=== PATIENT | male | born 1945 | race Caucasian/White ===

== ENCOUNTER 2019-06-15 14:06 | Inpatient (IN) ==
[2019-06-15] MEDS ORDERED: 0.9 % Sodium Chloride 1,000 ML ONE (14:21)
[2019-06-15] MEDS ORDERED: Ipratropium/Albuterol Neb 3 ML ONE (14:23)
[2019-06-15] MEDS ORDERED: Ipratropium/Albuterol Neb 3 ML IH ONE (14:24)
[2019-06-15] MEDS ORDERED: methylPREDNISolone 125 MG/2 ML VIAL IVP ONE (14:24)
[2019-06-15] MEDS ORDERED: 0.9 % Sodium Chloride 1,000 ML IVC ONE (14:24)
--- NOTE | 2019-06-15 14:28 | Emergency Department Note ---
Disposition Clinical Impression: Supratherapeutic INR, Hemoptysis, Atrial fibrillation with RVR, Pulmonary nodules, Elevated troponin Pneumonia Qualifiers: Pneumonia type: due to unspecified organism Laterality: bilateral Lung location: unspecified part of lung Qualified Code(s): J18.9 - Pneumonia, unspecified organism Sepsis Qualifiers: Sepsis type: sepsis due to unspecified organism Qualified Code(s): A41.9 - Sepsis, unspecified organism Disposition: Admitted As Inpatient Condition: Undetermined Referrals: NONE,PCP [Primary Care Provider] - Forms: ED Satisfaction Letter Time of Disposition: 17:45 General Adult HPI - General Chief complaint: ED Shortness of Breath/Dyspnea Stated complaint: [place] Time Seen by Provider: 06/15/19 14:24 Source: patient Mode of arrival: private vehicle Limitations: no limitations Nursing Notes Reviewed: Yes Vital Signs Reviewed: Yes - History of Present Illness HPI Narrative: Patient is a 73-year-old male with a past medical history including atrial fibrillation on Coumadin, hypertension, presenting to the emergency department with chief complaint of shortness of breath. The patient states for the past 5 days, he complains of cough and shortness of breath. He was diagnosed as an ou tpatient with community-acquired pneumonia at the urgent care and was sent home on Z-Eduar and prednisone. He states despite this, he has a decreased appetite, some nausea. He has not been taking his medications as prescribed. He states he has worsening cough and shortness of breath with exertion. He also complains of some hemoptysis in the past 2-3 days. He states at times, he will cough up bright red blood and sometimes it is dark. Today he states the shortness of breath was at its worse. He denies any chest pain, lower extremity swelling, abdominal pain, vomiting, diarrhea. Upon arrival, his oxygen saturation was 80% on room air. Pain Scale: 0 - Related Data Allergies Allergy/AdvReac Type Severity Reaction Status Date / Time acetaminophen [From Vicodin] Allergy Itching Verified 06/15/19 15:16 hydrocodone [From Vicodin] Allergy Itching Verified 06/15/19 15:16 oxycodone [From Percocet] Allergy Itching Verified 06/15/19 15:17 All systems ED: reviewed and negative except as stated. Review of Systems: As Per HPI Constitutional: Denies: fever, chills Cardiovascular: Denies: chest pain, palpitations Respiratory: Reports: cough, dyspnea, hemoptysis Gastrointestinal: Denies: abdominal pain, nausea, vomiting, diarrhea Genitourinary: Denies: dysuria Neurological: Denies: headache, weakness Past Medical History - Past Medical History Attestation: Yes The following information was validated with the patient. Source: patient Medical history: Reports: atrial fibrillation Psychiatric history: Reports: no psych history - Social History Smoking Status: Never smoker Smokeless Tobacco Status: No Alcohol use: Reports: none Drug use: Reports: none Physical Exam - General Limitations: no limitations General appearance: alert, in distress (respiratory distress) - Head Head exam: atraumatic, normocephalic - Eye Eye exam: Present: normal appearance, EOMI - ENT ENT exam: mucous membranes moist, other (Dried blood around the mouth, not actively having hemoptysis. Coughing clear sputum at this time.) - Neck Neck exam: Present: normal inspection, other (no JVD). Absent: tenderness - Chest Chest inspection: Present: normal inspection, symmetric chest wall rise - Respiratory Respiratory exam: Present: other (Slightly diminished breath sounds bilaterally with scattered expiratory wheezing. Oxygen per mask. Tachypneic, No Accessory muscle use.) - Cardiovascular Cardiovascular exam: Present: tachycardia, irregular rhythm, other (Bilateral radial and dorsalis pedis pulses palpable) - Abdominal Exam Abdominal exam: Present: soft, Non-Tender. Absent: distention - Extremities Exam Extremities exam: Present: normal capillary refill, other (Mild bilateral lower extremity edema to mid calf) - Neurological Exam Neurological exam: Present: alert, oriented X3 - Psychiatric Psychiatric exam: Present: normal affect, normal mood - Skin Skin exam: Present: warm. Absent: diaphoresis, pallor Course Vital Signs Temperature 97.9 F 06/15/19 14:09 Pulse Rate 120 06/15/19 14:09 Respiratory Rate 22 06/15/19 14:09 Blood Pressure 103/59 06/15/19 14:09 O2 Sat by Pulse Oximetry 80 06/15/19 14:09 Temperature 98.1 F 06/15/19 18:33 Pulse Rate 112 06/15/19 18:33 Respiratory Rate 20 06/15/19 18:33 Blood Pressure 111/78 06/15/19 18:18 O2 Sat by Pulse Oximetry 98 06/15/19 18:18 Oxygen Delivery Oxygen Delivery Room Air Medical Decision Making - MDM Narrative Medical decision making narrative: Patient was in significant amount of respiratory distress upon arrival. Oxygen saturation initially was 80% on room air. He does not wear oxygen at home. Patient was placed on high flow oxygen with much improvement in his oxygen satu ration. He also states he feels much better. He has scattered wheezing otherwise lungs were clear. He has mild swelling bilateral lower extremities. He has history of atrial fibrillation otherwise no history of coronary artery disease or heart failure. Suspect that his significant shortness of breath is secondary to pneumonia and possible COPD exacerbation. We will give him triple DuoNeb treatments as well as Solu-Medrol. Heart rate was atrial fibrillation with RVR with rate in the 160s. Patient states he has missed his diltiazem dose for the past couple of days. A 15 mg diltiazem bolus followed by titration diltiazem drip. CBC, PT/INR/PTT, d-dimer, BMP, troponin, BNP, chest x-ray, a CT will be obtained. Patient has no active hemoptysis at this time. 16:00 Patient has supratherapeutic INR and prolonged PTT and PT. He was given vitamin K and FFP as he is actively bleeding with the hemoptysis that he is having. Patient's HR 140's and is being titrated on the diltiazem drip. Troponin <0.03. Elevated BNP. Chest x-ray does show right lower lobe pneumonia. His d-dimer is elevated so we will obtain a CTA chest to rule out a pulmonary embolism as a cause of his significant shortness of breath. We will give the patient Levaquin, Rocephin, Azithromycin for pneumonia. Patient reassessed and states he is feeling better. He remained stable on high flow oxygen. No other co mplaints. 17:30 CTA negative for PE. HR improved to 110-120's. Discussed with hospitalist, Dr. Lara, and Dr. Benjamin who accept admission. Dr. Benjamin recommends giving K Centra for the elevated INR. This has been ordered. - Medical Records Medical records reviewed: Yes I reviewed the patient's medical records. - Lab Data Lab results reviewed: Yes I reviewed the patient's lab results. Result diagrams: 06/15/19 14:24 06/15/19 14:24 Lab Results 06/15/19 06/15/19 06/15/19 Range/Units 14:24 14:24 14:24 WBC 27.8 H (4.3-11.1) K/mcL RBC 4.69 (4.19-5.50) M/mcL Hgb 14.9 (12.9-16.9) g/dL Hct 43.6 (37.5-50.1) % MCV 93.0 (83.0-100.0) fL MCH 31.8 (28.0-33.3) pg MCHC 34.2 (31.6-35.5) g/dL RDW 13.8 (11.5-14.5) % Plt Count 302 (140-400) K/mcL MPV 10.0 (9.4-12.4) fL Immature Gran % Test Not Performed Seg Neutrophils % 82.0 % Band Neutrophils % 2.0 (0-4) % Lymphocytes % 8.0 % Monocytes % 6.0 % Eosinophils % Test Not Performed Basophils % Test Not Performed Myelocytes % 2.0 H (0) % Neutrophils # 23.4 H (1.6-8.9) K/mcL Lymphocytes # 2.2 (0.6-4.6) K/mcL Monocytes # 1.7 H (0.0-1.3) K/mcL Eosinophils # Test Not Performed Basophils # Test Not Performed Nucleated RBCs/100 WBC 0.1 H (0) /100 WBC Reactive Lymphocytes Present A (Not Present) Toxic Granulation Present A (Not Present) Large Platelets Present A (Not Present) Polychromasia 1+ A (Not Present) PT > 320.0 H* (9.4-12.1) Seconds INR > 29.6 H* APTT 130.5 H* (26.0-36.0) Seconds D-Dimer 1273 H (0-500) ng/mLFEU Heparin Anti-Xa, Unfract 0.00 L (0.30-0.70) IU/mL Sodium 131 L (136-145) mEq/L Potassium 3.7 (3.5-5.1) mEq/L Chloride 96 L (98-107) mEq/L Carbon Dioxide 19 L (23-29) mEq/L BUN 39 H (8-23) mg/dL Creatinine 1.22 (0.70-1.30) mg/dL Est GFR ( Amer) > 60 (> 60) Est GFR (Non-Af Amer) 58 L (> 60) BUN/Creatinine Ratio 32 H (6-26) Glucose 123 H (70-105) mg/dL Calculated Osmolality 283 (280-300) Lactic Acid (0.5-2.2) mmol/L Calcium 9.3 (8.6-10.3) mg/dL Troponin I 0.07 H* (< 0.04) ng/mL B-Natriuretic Peptide (Less than 100) pg/mL Specimen Rejected Blood Type Antibody Screen 06/15/19 06/15/19 06/15/19 Range/Units 14:24 14:24 15:28 WBC (4.3-11.1) K/mcL RBC (4.19-5.50) M/mcL Hgb (12.9-16.9) g/dL Hct (37.5-50.1) % MCV (83.0-100.0) fL MCH (28.0-33.3) pg MCHC (31.6-35.5) g/dL RDW (11.5-14.5) % Plt Count (140-400) K/mcL MPV (9.4-12.4) fL Immature Gran % Seg Neutrophils % % Band Neutrophils % (0-4) % Lymphocytes % % Monocytes % % Eosinophils % Basophils % Myelocytes % (0) % Neutrophils # (1.6-8.9) K/mcL Lymphocytes # (0.6-4.6) K/mcL Monocytes # (0.0-1.3) K/mcL Eosinophils # Basophils # Nucleated RBCs/100 WBC (0) /100 WBC Reactive Lymphocytes (Not Present) Toxic Granulation (Not Present) Large Platelets (Not Present) Polychromasia (Not Present) PT (9.4-12.1) Seconds INR APTT (26.0-36.0) Seconds D-Dimer (0-500) ng/mLFEU Heparin Anti-Xa, Unfract (0.30-0.70) IU/mL Sodium (136-145) mEq/L Potassium (3.5-5.1) mEq/L Chloride (98-107) mEq/L Carbon Dioxide (23-29) mEq/L BUN (8-23) mg/dL Creatinine (0.70-1.30) mg/dL Est GFR ( Amer) (> 60) Est GFR (Non-Af Amer) (> 60) BUN/Creatinine Ratio (6-26) Glucose (70-105) mg/dL Calculated Osmolality (280-300) Lactic Acid 1.8 (0.5-2.2) mmol/L Calcium (8.6-10.3) mg/dL Troponin I (< 0.04) ng/mL B-Natriuretic Peptide 415 H (Less than 100) pg/mL Specimen Rejected Hemolyzed Blood Type Antibody Screen 06/15/19 06/15/19 Range/Units 15:28 17:04 WBC (4.3-11.1) K/mcL RBC (4.19-5.50) M/mcL Hgb (12.9-16.9) g/dL Hct (37.5-50.1) % MCV (83.0-100.0) fL MCH (28.0-33.3) pg MCHC (31.6-35.5) g/dL RDW (11.5-14.5) % Plt Count (140-400) K/mcL MPV (9.4-12.4) fL Immature Gran % Seg Neutrophils % % Band Neutrophils % (0-4) % Lymphocytes % % Monocytes % % Eosinophils % Basophils % Myelocytes % (0) % Neutrophils # (1.6-8.9) K/mcL Lymphocytes # (0.6-4.6) K/mcL Monocytes # (0.0-1.3) K/mcL Eosinophils # Basophils # Nucleated RBCs/100 WBC (0) /100 WBC Reactive Lymphocytes (Not Present) Toxic Granulation (Not Present) Large Platelets (Not Present) Polychromasia (Not Present) PT (9.4-12.1) Seconds INR APTT (26.0-36.0) Seconds D-Dimer (0-500) ng/mLFEU Heparin Anti-Xa, Unfract (0.30-0.70) IU/mL Sodium (136-145) mEq/L Potassium (3.5-5.1) mEq/L Chloride (98-107) mEq/L Carbon Dioxide (23-29) mEq/L BUN (8-23) mg/dL Creatinine (0.70-1.30) mg/dL Est GFR ( Amer) (> 60) Est GFR (Non-Af Amer) (> 60) BUN/Creatinine Ratio (6-26) Glucose (70-105) mg/dL Calculated Osmolality (280-300) Lactic Acid 1.4 (0.5-2.2) mmol/L Calcium (8.6-10.3) mg/dL Troponin I (< 0.04) ng/mL B-Natriuretic Peptide (Less than 100) pg/mL Specimen Rejected Blood Type B POSITIVE Antibody Screen NEGATIVE - Radiology Data Radiology results reviewed: Yes I reviewed the patient's radiology results. Chest X-Ray 06/15/19 14:24 IMPRESSION: Airspace and interstitial opacities diffusely to the right lung with slight sparing of the right lung base concerning for pneumonia. Follow-up to resolution recommended. D/ 06/15/2019 14:52:43 Kamar Sharp MD / rajeev Interpreting Provider: Kamar Sharp MD Chest CTA 06/15/19 15:56 IMPRESSION: No PE identified. Diffuse interstitial and alveolar infiltrates within the right lung. Mediastinal and right hilar adenopathy. Pulmonary emphysema with left upper lobe and right lower lobe pulmonary micronodules. Correlate for pneumonia and strongly advised follow-up to complete imaging resolution to rule out the possibility of an underlying malignancy. RECOMMENDATIONS: Fleischner Society guidelines for follow-up and management of incidentally detected pulmonary nodules: Multiple Solid Nodules: Nodule size less than 6 mm In a low-risk patient, no routine follow-up. In a high-risk patient, optional CT at 12 months. Nodule size equals 6-8 mm In a low-risk patient, CT at 3-6 months, then consider CT at 18-24 months. In a high-risk patient, CT at 3-6 months, then CT at 18-24 months. Nodule size greater than 8 mm In a low-risk patient, CT at 3-6 months, then consider CT at 18-24 months. In a high-risk patient, CT at 3-6 months, then CT at 18-24 months. - Low risk patients include individuals with minimal or absent history of smoking and other known risk factors. - High risk patients include individuals with a history or smoking or known risk factors. Radiology 2017 http://pubs.rsna.org/doi/full/10.1148/radiol.[email or web address] D/ / Speedy Daigle MD / Speedy Daigle MD Interpreting Provider: Speedy Daigle MD - EKG Data EKG #1 EKG attestation: Yes I reviewed and interpreted this EKG. EKG results narrative: EKG obtained at 1420 shows atrial fibrillation with rapid ventricular rate with rate 172, QRS duration 91, QTC 450, no ST elevation or depression, no old EKG to compare to. Critical Care Time Critical Care Time: Yes Total Critical Care Time: 35 Attestation: Rectal care time 35 minutes managing patient's hypoxia, hemoptysis, and elevated INR. Attestation Statement - Attestation Attestation: Patient was seen with resident physician. I reviewed the history, physical, assessment and plan, and agree with the findings. I also personally evaluated this patient and had [id number] time with this patient. 73-year-old male comes into the emergency Department chief complaint of h emoptysis. Patient started coughing blood a couple days ago. Progressively got worse. No shortness of breath. Denies chest pain. No nausea vomiting. No diarrhea. No dark stools. No blood in the urine. Patient and are on clear as to how much blood he coughed up.. They said sometimes brighter sometimes darker. They did note it is not vomiting. Patient was recently diagnosed with pneumonia and started on antibiotic therapy. Patient does take anticoagulation currently he is on Coumadin.. Review systems as above remainder negative. Physical exam vital signs demonstrate an elevated heart rate and what appears to be A. fib.. ENT is unremarkable. Heart rapid ventricular rate, no murmurs. Lungs diffuse mild end expiratory wheezing. Abdomen soft nontender. Extremities unremarkable. Neurologically intact. Skin no rashes. Psych normal. She be noted that patient had some blood around the mouth that appeared dried. He did not have hemoptysis while in the emergency department. ED course. Patient's INR was markedly elevated. He will require FFP and vitamin K. We will also need to control his heart rate. One sets done we will try and do some breathing treatments to help with his breathing and hypoxia. Patient will clearly require hospitalization for additional evaluation and management. The variety of other issues were also discovered on examination and workup. Including continuation of pneumonia. For full list of patient diagnosis please see the diagnosis list. Hemodynamically he was improved while he was here. He did not have any active hemoptysis while in the emergency department seems to have resolved prior to his arrival. Critical care time for this case was 35 minutes. We spoke to the hospitalist service agreed except patient for admission. Patient will be taken to the ICU. ED procedures.I reviewed the patient's EKG as well as the resident physician interpretation and I agree with the findings.
[2019-06-15 14:34] LABS: Nucleated Red Blood Cells 0.1 /100 WBC (0)
[2019-06-15 14:35] LABS: Hematocrit 43.6 % (37.5-50.1); Hemoglobin 14.9 g/dL (12.9-16.9); Mean Corpuscular HGB Conc 34.2 g/dL (31.6-35.5); Mean Corpuscular Hemoglobin 31.8 pg (28.0-33.3); Platelet Count 302 K/mcL (140-400); Red Blood Count 4.69 M/mcL (4.19-5.50); Red Cell Distribution Width 13.8 % (11.5-14.5); White Blood Count 27.8 K/mcL (4.3-11.1)
[2019-06-15 15:00] LABS: BUN/Creatinine Ratio 32 (6-26); Blood Urea Nitrogen 39 mg/dL (8-23); Calcium 9.3 mg/dL (8.6-10.3); Carbon Dioxide 19 mEq/L (23-29); Chloride 96 mEq/L (98-107); Glucose 123 mg/dL (70-105); Osmolality,Calculated 283 (280-300); Potassium 3.7 mEq/L (3.5-5.1); Sodium 131 mEq/L (136-145); Troponin I 0.07 ng/mL (< 0.04); eGFR For African Americans > 60 (> 60); eGFR For Non-African Americans 58 (> 60)
[2019-06-15 15:02] LABS: Large Platelets Present (Not Present); Lymphocytes # 2.2 K/mcL (0.6-4.6); Monocytes # 1.7 K/mcL (0.0-1.3); Neutrophils # 23.4 K/mcL (1.6-8.9); Reactive Lymphocytes Present (Not Present); Toxic Granulation Present (Not Present)
[2019-06-15] MEDS ORDERED: *HR* Phytonadione 5 MG TABLET PO ONE (15:02)
[2019-06-15 15:03] LABS: Polychromasia 1+ (Not Present)
[2019-06-15 15:04] LABS: Activated Partial Thrombo Time 130.5 Seconds (26.0-36.0); D-Dimer 1273 ng/mLFEU (0-500)
[2019-06-15 15:06] LABS: Prothrombin Time > 320.0 Seconds (9.4-12.1)
[2019-06-15 15:07] LABS: INR > 29.6
[2019-06-15] MEDS ORDERED: Azithromycin 500 MG in D5% in Water 250 ML IVPB ONE (15:32)
[2019-06-15] MEDS ORDERED: cefTRIAXone 1,000 MG in Water for inj. (sterile) 10 ML IVP ONE (15:32)
[2019-06-15] MEDS ORDERED: Isovue-370 500 ML BOTTLE IVP ONE (15:56)
[2019-06-15] MEDS ORDERED: [UNRECOGNIZED DRUG - OTHER] IVPB ONE (17:44)
[2019-06-15] MEDS ORDERED: WATER FOR INJ IVPB ONE (17:44)
[2019-06-15] MEDS ORDERED: HUM PROTHROMBIN CPLX IVPB ONE (17:44)
--- NOTE | 2019-06-15 18:26 | Internal Med History&Physical ---
Date of Encounter: 06/15/19 Time of Encounter: 18:21 Internal Medicine - H&P: HPI Chief complaint: cough, shortness of breath. Admitted From: Home Plans for Post Hospital Care: Home History of present illness: Mr. Navarrete is a 73 year old male with past medical history of A. fib on Coumadin, hypertension, gout, peripheral vascular disease came in computer of cough and shortness of breath. Patient was evaluated about 4 days ago at urgent care where he was prescribed prednisone, amoxicillin and azithromycin. She is on difficulty breathing continued to worse. He had subjective fevers and chills. Over the past 2-3 days she started noticing blood in his him why his coughing. Dark red in color. About 2-4 times a day. Denies any clots. Denies any chest pain. Had associated palpitation. Denies any lightheadedness or dizziness or syncopal episode. Given continued difficulty breathing he came to ER. He was admitted in ER her lab showed white count of 27,000, INR of more than 29.6, d-dimer of 1273, BNP of [address] was obtained which showed pulmonary emphysema, diffuse interstitial and alveolar infiltrates within right lung, mediastinal and right hilar adenopathy and pulmonary nodules. Patient was given Solu-Medrol, vitamin K, 1 L IV fluids, ceftriaxone and azithromycin and breathing treatments. He was also started on diltiazem drip for A. fib with RVR. Admission was requested for further management. Past Med Surg Social Fam HX - Past Medical History Medical history: atrial fibrillation Psychiatric history: no psych history - Past Surgical History Additional surgical history: hand surgery - Social History Smoking Status: Former smoker (60 pack year) Smokeless Tobacco Status: No Alcohol use: none Drug use: none Internal Medicine - H&P: Meds Allergy/AdvReac Type Severity Reaction Status Date / Time acetaminophen [From Vicodin] Allergy Itching Verified 06/15/19 15:16 hydrocodone [From Vicodin] Allergy Itching Verified 06/15/19 15:16 oxycodone [From Percocet] Allergy Itching Verified 06/15/19 15:17 All Systems PM: A 10-system review of systems was performed and is negative for pertinent findings except as documented above in the HPI. - Constitutional Vitals: Temp Pulse Resp BP Pulse Ox 97.9 F 120 22 103/59 80 07/28/19 14:09 06/15/19 14:09 06/15/19 14:09 06/15/19 14:09 06/15/19 14:09 Exam: Constitutional: Vitals as noted. Conversant. No Apparent Distress. Well groomed. No obvious deformities. Eyes : Sclera white, conjunctiva clear, no lid lag, PEARLA. ENT : Grossly normal hearing. Oropharyngeal exam unremarkable. Moist mucus membranes. No JVD, no cervical lymphadenopathy. no thyromegaly or mass. Respiratory : Clear to auscultation bilaterally. No accessory muscle use, rales, rhonchi or wheezes Cardiovascular : RRR, +S1, +S2. no murmur, gallop, rubs. No chest wall tenderness GI/Abdominal : Soft, Non-tender, Non-distended, normal bowel sounds, soft, no peritoneal signs. no orgenomegaly or mass appreciated. no hernia. Musculoskeletal: no deformity noted. no edema or cyanosis. warm extremities, pulses palpable and symmetrical in UE/LE. no calf tenderness. Neurological: AO X3, CN II-XII grossly intact, grossly normal motor and sensory exam. Skin: No skin rash, lesions or ulcers noted. Pych: Good insight and judgement. Intact memory. AOx3. Internal Med - H&P Results - Labs CBC & Chem 7: 06/15/19 14:24 06/15/19 14:24 Labs: Short CBC 06/15/19 Range/Units 14:24 WBC 27.8 H (4.3-11.1) K/mcL Hgb 14.9 (12.9-16.9) g/dL Hct 43.6 (37.5-50.1) % Plt Count 302 (140-400) K/mcL Neutrophils # 23.4 H (1.6-8.9) K/mcL BMP 06/15/19 14:24 Sodium 131 L Potassium 3.7 Chloride 96 L Carbon Dioxide 19 L BUN 39 H Creatinine 1.22 Glucose 123 H Calcium 9.3 Cardiac Enzymes 06/15/19 Range/Units 14:24 Troponin I 0.07 H* (< 0.04) ng/mL - EKG Data -: EKG Interpreted by Myself (afib with rvr. ) - Impressions ITS Impressions Chest X-Ray 06/15/19 14:24 IMPRESSION: Airspace and interstitial opacities diffusely to the right lung with slight sparing of the right lung base concerning for pneumonia. Follow-up to resolution recommended. D/ /15/2019 14:52:43 Kamar Sharp MD / rajeev Interpreting Provider: Kamar Sharp MD Chest CTA 06/15/19 15:56 IMPRESSION: No PE identified. Diffuse interstitial and alveolar infiltrates within the right lung. Mediastinal and right hilar adenopathy. Pulmonary emphysema with left upper lobe and right lower lobe pulmonary micronodules. Correlate for pneumonia and strongly advised follow-up to complete imaging resolution to rule out the possibility of an underlying malignancy. RECOMMENDATIONS: Fleischner Society guidelines for follow-up and management of incidentally detected pulmonary nodules: Multiple Solid Nodules: Nodule size less than 6 mm In a low-risk patient, no routine follow-up. In a high-risk patient, optional CT at 12 months. Nodule size equals 6-8 mm In a low-risk patient, CT at 3-6 months, then consider CT at 18-24 months. In a high-risk patient, CT at 3-6 months, then CT at 18-24 months. Nodule size greater than 8 mm In a low-risk patient, CT at 3-6 months, then consider CT at 18-24 months. In a high-risk patient, CT at 3-6 months, then CT at 18-24 months. - Low risk patients include individuals with minimal or absent history of smoking and other known risk factors. - High risk patients include individuals with a history or smoking or known risk factors. Radiology 2017 http://pubs.rsna.org/doi/full/10.1148/radiol.[email or web address] D/ / Speedy Daigle MD / Speedy Daigle MD Interpreting Provider: Speedy Daigle MD - Assessment and Plan (1) Acute respiratory failure with hypoxia Current Visit: Yes Status: Acute Assessment and plan: Likely secondary to pneumonia and underlying COPD as evidenced on CT. We will keep patient on Levaquin. Keep on Solu-Medrol 60 mg q12h and given nebs Currently on high flow oxygen. Discussed possible need for intubation if wo rsens. Patient agrees and is full code. Keep patient nothing by mouth for now (2) Supratherapeutic INR Current Visit: Yes Status: Acute Assessment and plan: INR significantly elevated. Likely due to drug interaction with antibiotics and Coumadin Patient received dose of vitamin K in ER. Discussed with the ER physician. We will give patient to [facility]. Discussed dosing with pharmacy. Patient does have associated hemoptysis. If develop severe hemoptysis may need intubation. Discussed with patient. We will keep patient in ICU. Pulmonology consulted. Case discussed. (3) Hemoptysis Current Visit: Yes Status: Acute Assessment and plan: Likely secondary to supratherapeutic INR Management as above. (4) Pneumonia Current Visit: Yes Status: Acute Assessment and plan: Patient has evidence of right upper lobe consolidation. We will keep patient on Levaquin for now. We will hold azithromycin for now. Obtain respiratory infectious panel and urinary antigens. Keep patient on Solu-Medrol bronchodilators and supplemental oxygen. Qualifiers: Pneumonia type: due to unspecified organism Laterality: right Lung location: unspecified part of lung Qualified Code(s): J18.9 - Pneumonia, unspecified organism (5) Elevated troponin I level Current Visit: Yes Status: Acute Assessment and plan: Likely demand ischemia with COPD exacerbation and pneumonia. Denies chest paint. EKG without ischemic changes. We will trend troponin and obtain echocardiogram. (6) Atrial fibrillation with RVR Current Visit: Yes Status: Acute Assessment and plan: Continue patient on diltiazem drip. Hold home Coumadin given supratherapeutic INR. - Time Spent With Patient Total time spent is greater than 50% in coordination of care (as documented) at patient's floor/unit and/or counseling patient:
[2019-06-15] MEDS ORDERED: Ipratropium/Albuterol Neb 3 ML IH PRN (18:40)
[2019-06-15] MEDS ORDERED: 0.9 % Sodium Chloride 1,000 ML IVC SCH (18:45)
[2019-06-15] MEDS ORDERED: levoFLOXacin 750 MG/150 ML 750 MG/150 ML BAG IVPB SCH (20:00)
[2019-06-15] MEDS: Ipratropium/Albuterol Neb 3 ML IH SCH (21:20)
[2019-06-15 22:22] LABS: Adenovirus Not Detected (Not Detect); Bordetella Pertussis Not Detected (Not Detect); Chlamydophila pneumoniae Not Detected (Not Detect); Coronavirus 229E Not Detected (Not Detect); Coronavirus HKU1 Not Detected (Not Detect); Coronavirus NL63 Not Detected (Not Detect); Coronavirus OC43 Not Detected (Not Detect); Human Metapneumovirus Not Detected (Not Detect); Human Rhinovirus/Enterovirus Not Detected (Not Detect); Influenza A Subtype 2009 H1 Not Detected (Not Detect); Influenza A Untypeable Not Detected (Not Detect); Influenza B Not Detected (Not Detect); Mycoplasma pneumoniae Not Detected (Not Detect); Parainfluenza Virus 1 Not Detected (Not Detect); Parainfluenza Virus 2 Not Detected (Not Detect); Parainfluenza Virus 3 Not Detected (Not Detect); Parainfluenza Virus 4 Not Detected (Not Detect); Respiratory Syncytial Virus Not Detected (Not Detect)
[2019-06-15] MEDS ORDERED: *HR* Dextrose 50 % in Water (Syg) 50 ML SYRINGE IVP PRN (22:30)
[2019-06-15] MEDS ORDERED: Dextrose Gel 15 GM/37.5 ML TUBE PO PRN ×2 (22:30)
[2019-06-15] MEDS ORDERED: D5% in Water 1,000 ML IVC PRN (22:30)
[2019-06-15] MEDS: Insulin LISPRO 300 UNITS/3 ML VIAL SQ SCH (23:40)
[2019-06-16] MEDS: Ipratropium/Albuterol Neb 3 ML IH SCH ×4 (03:48→22:44)
[2019-06-16 05:11] LABS: Basophils # 0.1 K/mcL (0.0-0.2); Basophils % 0.6 %; Hematocrit 34.4 % (37.5-50.1); Immature Granulocytes % 5.3 % (0-4); Lymphocytes # 1.1 K/mcL (0.6-4.6); Lymphocytes % 9.4 %; Mean Corpuscular Hemoglobin 31.5 pg (28.0-33.3); Mean Corpuscular Volume 92.7 fL (83.0-100.0); Mean Platelet Volume 9.8 fL (9.4-12.4); Monocytes # 0.3 K/mcL (0.0-1.3); Monocytes % 2.5 %; Platelet Count 232 K/mcL (140-400); Red Blood Count 3.71 M/mcL (4.19-5.50); Red Cell Distribution Width 13.9 % (11.5-14.5); Segmented Neutrophils % 82.2 %
[2019-06-16 05:16] LABS: Hemoglobin 11.7 g/dL (12.9-16.9); Neutrophils # 9.5 K/mcL (1.6-8.9); White Blood Count 11.6 K/mcL (4.3-11.1)
[2019-06-16 05:25] LABS: INR 2.3; Prothrombin Time 25.6 Seconds (9.4-12.1)
[2019-06-16 05:30] LABS: BUN/Creatinine Ratio 37 (6-26); Blood Urea Nitrogen 34 mg/dL (8-23); Calcium 8.4 mg/dL (8.6-10.3); Carbon Dioxide 20 mEq/L (23-29); Chloride 102 mEq/L (98-107); Glucose 171 mg/dL (70-105); Magnesium 2.1 mg/dL (1.6-2.6); Osmolality,Calculated 290 (280-300); Phosphorous 2.5 mg/dL (2.7-4.5); Potassium 3.5 mEq/L (3.5-5.1); Sodium 134 mEq/L (136-145); eGFR For African Americans > 60 (> 60); eGFR For Non-African Americans > 60 (> 60)
[2019-06-16] MEDS: Insulin LISPRO 300 UNITS/3 ML VIAL SQ SCH ×3 (05:36→18:17)
[2019-06-16 05:43] LABS: Platelet Estimate Normal (Normal)
[2019-06-16] MEDS ORDERED: methylPREDNISolone 125 MG/2 ML VIAL IVP SCH (06:00)
--- NOTE | 2019-06-16 07:48 | Internal Med Progress Note ---
Hospitalist Progress Note - Encounter Date of Encounter: 06/16/19 Time of Encounter: 07:48 - Subjective Interval History: Patient seen and examined this morning check. No acute overnight events. Denies any blood in sputum however he felt he might have swallowed a couple of times. Denies any chest pain. Breathing significantly improved. Denies any ab dominal pain back pain nausea vomiting or diarrhea. - Exam Vitals: Temp Pulse Resp BP Pulse Ox 98.8 F 90 12 117/68 94 06/16/19 04:00 06/16/19 06:00 06/16/19 06:00 06/16/19 06:00 06/16/19 06:00 Exam: Constitutional: In no distress ENT: Grossly normal hearing. Oropharyngeal exam with dried blood in mouth Respiratory : minimal rhonchi on Rt with pleural rub. improved air entry. Cardiovascular : tachycardic, +S1, +S2. no murmur, gallop, rubs. No chest wall tenderness GI/Abdominal : Soft, Non-tender, Non-distended, normal bowel sounds, Musculoskeletal: no deformity noted, no edema or cyanosis, pulses palpable and symmetrical in UE/LE. no calf tenderness. Neurological: AO X3, CN II-XII grossly intact, grossly normal motor and sensory exam. Skin: No skin rash, lesions or ulcers noted. Pych: Good insight and judgement. Intact memory. AOx3. - Assessment and Plan (1) Acute respiratory failure with hypoxia Current Visit: Yes Status: Acute (2) Supratherapeutic INR Current Visit: Yes Status: Acute (3) Hemoptysis Current Visit: Yes Status: Acute (4) Pneumonia Current Visit: Yes Status: Acute (5) Elevated troponin I level Current Visit: Yes Status: Acute (6) Atrial fibrillation with RVR Current Visit: Yes Status: Acute - Summary of Assessment and Plan Summary of Assessment and Plan: Assessment Acute Acute respiratory failure with hypoxia supratherpeutic INR Hemoptysis Pneumonia-rt lung , unclear organism Lung nodule elevated troponin COPD exacerbation Chronic afib copd PAD former smoker Plan - clinically improved. Transfer to any tele - continue with empiric levaquin for pneumonia. RIP and urine ag negative. - c/w solumedrol and bronchodilator for COPD exacerbation. c/w supplemental oxygen - Was given Vit K and Kcentra for supratherapeutic INR with hemoptysis. INR now normalized. Hold coumadin for now. Pulmonology consulted for hemoptysis - Will switch rate control medication if bronchoscopy not planned today. confirm home medications. - elevated troponin likely from likely demand ischemia with COPD exacerbation and pneumonia. EKG without ischemic changes. f/u echocardiogram. Internal Medicine: Result - Labs CBC & Chem 7: 06/16/19 04:58 06/16/19 04:58 Labs: Short CBC 06/15/19 06/16/19 Range/Units 14:24 04:58 WBC 27.8 H 11.6 H D (4.3-11.1) K/mcL Hgb 14.9 11.7 L D (12.9-16.9) g/dL Hct 43.6 34.4 L (37.5-50.1) % Plt Count 302 232 (140-400) K/mcL Neutrophils # 23.4 H 9.5 H (1.6-8.9) K/mcL BMP 06/15/19 06/16/19 14:24 04:58 Sodium 131 L 134 L Potassium 3.7 3.5 Chloride 96 L 102 Carbon Dioxide 19 L 20 L BUN 39 H 34 H Creatinine 1.22 0.92 Glucose 123 H 171 H Calcium 9.3 8.4 L Cardiac Enzymes 06/15/19 06/15/19 06/15/19 Range/Units 14:24 19:07 23:18 Troponin I 0.07 H* 0.09 H* 0.04 H* (< 0.04) ng/mL 06/16/19 Range/Units 04:58 Troponin I < 0.03 (< 0.04) ng/mL - ABG Interpretation ABG results: PT/INR, D-dimer PT 25.6 Seconds (9.4-12.1) H D 06/16/19 04:58 D-Dimer 1273 ng/mLFEU (0-500) H 06/15/19 14:24 - Impressions Impressions Chest X-Ray 06/15/19 14:24 IMPRESSION: Airspace and interstitial opacities diffusely to the right lung with slight sparing of the right lung base concerning for pneumonia. Follow-up to resolution recommended. D/ / 06/15/2019 14:52:43 Kamar Sharp MD / rajeev Interpreting Provider: Kamar Sharp MD Chest CTA 06/15/19 15:56 IMPRESSION: No PE identified. Diffuse interstitial and alveolar infiltrates within the right lung. Mediastinal and right hilar adenopathy. Pulmonary emphysema with left upper lobe and right lower lobe pulmonary micronodules. Correlate for pneumonia and strongly advised follow-up to complete imaging resolution to rule out the possibility of an underlying malignancy. RECOMMENDATIONS: Fleischner Society guidelines for follow-up and management of incidentally detected pulmonary nodules: Multiple Solid Nodules: Nodule size less than 6 mm In a low-risk patient, no routine follow-up. In a high-risk patient, optional CT at 12 months. Nodule size equals 6-8 mm In a low-risk patient, CT at 3-6 months, then consider CT at 18-24 months. In a high-risk patient, CT at 3-6 months, then CT at 18-24 months. Nodule size greater than 8 mm In a low-risk patient, CT at 3-6 months, then consider CT at 18-24 months. In a high-risk patient, CT at 3-6 months, then CT at 18-24 months. - Low risk patients include individuals with minimal or absent history of smoking and other known risk factors. - High risk patients include individuals with a history or smoking or known risk factors. Radiology 2017 http://pubs.rsna.org/doi/full/10.1148/radiol.6729955065 D/ / Speedy Daigle MD / Speedy Daigle MD Interpreting Provider: Speedy Daigle MD - VTE Reasons for not Prescribing Prophylaxis: Not indicated-Anticoagulated or INR therapeutic Consult Discharge Plan - Plan Referrals: NONE,PCP [Primary Care Provider] - ____ (4) Pneumonia Qualifiers: Pneumonia type: due to unspecified organism Laterality: right Lung location: unspecified part of lung Qualified Code(s): J18.9 - Pneumonia, unspecified organism
[2019-06-16] MEDS ORDERED: Perflutren Lipid Microsphere 1.3 ML in 0.9 % Sodium Chloride 8.7 ML IVP ONE (07:49)
[2019-06-16] MEDS ORDERED: Perflutren Lipid Microsphere 2 ML VIAL ONE (07:52)
--- NOTE | 2019-06-16 08:05 | Pulmonology Consult Note ---
<Faustino Herrera W - Last Filed: 06/16/19 12:59> Date of Encounter: 06/16/19 Medications and Allergies Allergy/AdvReac Type Severity Reaction Status Date / Time hydrocodone [From Vicodin] Allergy Itching Verified 06/15/19 15:16 oxycodone [From Percocet] Allergy Itching Verified 06/15/19 15:17 All Systems: The remainder of the systems were reviewed and are negative Physical Examination Vital Signs: Vital Signs, Last 4 Hours Temp Pulse Resp BP Pulse Ox 06/16/19 11:39 97.6 F 89 20 118/72 91 06/16/19 10:00 16 94 Results - Laboratory Findings CBC and BMP: 06/16/19 04:58 06/16/19 04:58 PT/INR, D-dimer PT 25.6 Seconds (9.4-12.1) H D 06/16/19 04:58 D-Dimer 1273 ng/mLFEU (0-500) H 06/15/19 14:24 Abnormal lab findings: Abnormal lab results WBC 11.6 K/mcL (4.3-11.1) H D 06/16/19 04:58 RBC 3.71 M/mcL (4.19-5.50) L 06/16/19 04:58 Hgb 11.7 g/dL (12.9-16.9) L D 06/16/19 04:58 Hct 34.4 % (37.5-50.1) L 06/16/19 04:58 Immature Gran % 5.3 % (0-4) H 06/16/19 04:58 Myelocytes % 2.0 % (0) H 06/15/19 14:24 Neutrophils # 9.5 K/mcL (1.6-8.9) H 06/16/19 04:58 Monocytes # 1.7 K/mcL (0.0-1.3) H 06/15/19 14:24 Nucleated RBCs/100 WBC 0.1 /100 WBC (0) H 06/15/19 14:24 Reactive Lymphocytes Present (Not Present) A 06/15/19 14:24 Toxic Granulation Present (Not Present) A 06/15/19 14:24 Large Platelets Present (Not Present) A 06/15/19 14:24 Polychromasia 1+ (Not Present) A 06/15/19 14:24 PT 25.6 Seconds (9.4-12.1) H D 06/16/19 04:58 INR > 29.6 H* 06/15/19 14:24 APTT 130.5 Seconds (26.0-36.0) H* 06/15/19 14:24 D-Dimer 1273 ng/mLFEU (0-500) H 06/15/19 14:24 Heparin Anti-Xa, Unfract 0.00 IU/mL (0.30-0.70) L 06/15/19 14:24 Sodium 134 mEq/L (136-145) L 06/16/19 04:58 Chloride 96 mEq/L (98-107) L 06/15/19 14:24 Carbon Dioxide 20 mEq/L (23-29) L 06/16/19 04:58 BUN 34 mg/dL (8-23) H 06/16/19 04:58 Est GFR (Non-Af Amer) 58 (> 60) L 06/15/19 14:24 BUN/Creatinine Ratio 37 (6-26) H 06/16/19 04:58 Glucose 171 mg/dL (70-105) H 06/16/19 04:58 POC Glucose 202 mg/dL (70-99) H 06/15/19 23:37 Calcium 8.4 mg/dL (8.6-10.3) L 06/16/19 04:58 Phosphorus 2.5 mg/dL (2.7-4.5) L 06/16/19 04:58 Troponin I 0.04 ng/mL (< 0.04) H* 06/15/19 23:18 B-Natriuretic Peptide 415 pg/mL (Less than 100) H 06/15/19 14:24 - Microbiology Findings Microbiology Findings: Microbiology, Last 48 Hours 06/15/19 21:15 Legionella Antigen - Final Urine,Clean Catch Streptococcus pneumoniae Antigen (M - Final - Clinical Findings Intake & Output: Intake & Output 06/15/19 06/16/19 06/16/19 23:59 07:59 15:59 Intake Total 2240 / 2250 100 / 180 80 / 180 Output Total 450 / 450 600 / 600 Balance 1790 / 1800 -500 / -420 80 / -420 Weight 94 kg Consult Discharge Plan - Plan Referrals: NONE,PCP [Primary Care Provider] - - Attending Attestation I examined this patient and my medical decision-making was reviewed with the Resident Physician. I agree with the documented findings, disposition and treatment plan as described except to the extent set forth below. We maylin vasquez had [id number] contact with the patient Patient seen and examined at bedside Labs, radiology, chart personally reviewed. Impression: 1. Hemoptysis - submassive 2. Community Acquired PNA 3. Lung Nodules 4. COPD exacerbation 5. Warfarin induced coagulopathy. Recs: 1. Keep receptacle at bedside to track amount (appears to have subsided at this point). If more than 250 mL in 12 hours or at one time would be transferred to ICU and consider intubation I suspect this is unlikely. Keep nothing by mouth at midnight for bronchoscopy 2. Agree with Levaquin MRSA nasal surveillance now if + consider starting MRSA coverage pending bronch. F/u Blood cultures. will need f/u CT scan in 4-6 weeks 3. F/u CT scan 4. Agree with steroids can receive it is an 40 mg to complete at least 5 days duo nebs as scheduled every 4-6 hours and albuterol hourly as needed we will start Symbicort as well 5. INR is now therapeutic repeat INR this evening if above 2 may need another dose of vitamin K as patient will need to be under 2.0 to undergo bronchoscopy tomorrow. A bronchoscopy is recommended. The procedure , risks, benefits, complications, and expected outcomes have been reviewed. Benefits of diagnosis, as well as risks to include bleeding, infection, pneumothorax which may require surgical intervention, and in a small population. The patient is aware that sometimes test is nondiagnostic. Discussed with patient and agrees to proceed. <Tanvir Nicholson - Last Filed: 06/16/19 14:24> Date of Encounter: 06/16/19 Time of Encounter: 08:05 Assessment and Plan (1) Acute respiratory failure with hypoxia Current Visit: Yes Status: Acute Pt presented with acute Respiratory failure with Hypoxia. - Hx of COPD, diagnosed with CAP last week. - O2 80% on room air at admission - No O2 requirement at home. - Saturating well on 4L via nasal cannula. - PNA and underlying COPD noted on CXR and CTA Plan: - Solu-medrol 60mg BID - Duonebs q6h - Levaquin Day 2 (2) Hemoptysis Current Visit: Yes Status: Acute Pt has cough with Hemoptysis since last week - Secondary to cough and supratheraputic INR 29.6 on admission - Small amounts of blood mixed with sputum - No gross bleeding noted Plan: - Measure amount with bedside cup - NPO at midnight for Bronchoscopy tomorrow (3) Community acquired pneumonia Current Visit: Yes Status: Acute Pt presenting with Community Acquired Pneumonia - Diffuse interstitial and alveolar opacities in R lung upper and middle lobes on CXR and CTA. - MRSA screen negative Plan: - Cont Levaquin - Follow-up CT in 4-6 weeks Qualifiers: Laterality: right Lung location: upper lobe of lung Qualified Code(s): J18.1 - Lobar pneumonia, unspecified organism (4) Incidental lung nodule, greater than or equal to 8mm Current Visit: Yes Status: Acute Mulitple lung nodules on CTA - 9mm nodule in R lower lobe - 5.7mm nodule in L upper lobe Plan: - Fleischner Society Guidelines, follow-up CT 3-6 months, Then CT in 18-24 months (5) COPD exacerbation Current Visit: Yes Status: Acute Pt presenting with COPD exacerbation Plan: - Switch Solumedrol to prednisone 40mg to complete 5 day course. - Duonebs q6h - Symbicort BID - Albuterol PRN (6) Supratherapeutic INR Current Visit: Yes Status: Acute Supratherapeutic INR - Revered with VitK - 2.3 today Plan: - Recheck INR later today - Will need to be below 2.0 for bronchoscopy tomorrow History of Present Illness Consult date: 06/16/19 Chief complaint: SOB, Cough, Hemoptysis History of present illness: Donald Navarrete is a 73-year-old male with a past medical history of COPD, A. fib on Coumadin, diabetes, and hyperlipidemia. He presented to the emergency room with shortness of breath and worsening respiratory distress. He had originally presented to urgent care last week around Sunday or with complaints of shortness of breath and hemoptysis. There, he was diagnosed with pneumonia and prescribed prednisone, amoxicillin, and azithromycin. His shortness of breath did not improve so he came to the emergency department. In the emergency department he had a leukocytosis of 27,000, an INR of greater than 29.6, d-dimer of 1273. CTA of the chest showed diffuse interstitial and alveolar consolida tions of the right lung, mediastinal and right hilar adenopathy, pulmonary emphysema with left upper lobe and right lower lobe pulmonary micronodules. In the emergency room he was given Solu-Medrol, vitamin K, IV fluids, started on ceftriaxone and azithromycin, and duo nebs. He also started on a diltiazem diltiazem drip for A. fib with RVR. He was admitted to the ICU. Respiratory distress improved with DuoNeb's and high flow oxygen. Hemoptysis remained minimal. Patient did not need intubation. When evaluated in the ICU patient saturating well and resting comfortably on 4 L O2 via nasal cannula. Patient had 1 episode of hemoptysis last night, small amount of blood mixed with sputum. Respiratory panel was negative. Past Med Surg Social Fam HX - Past Medical History Medical history: atrial fibrillation Psychiatric history: no psych history - Past Surgical History Additional surgical history: hand surgery - Social History Smoking Status: Former smoker Packs per day: 1 pack per day for 25 years. Quit in 1994. Smokeless Tobacco Status: No Alcohol use: none Drug use: none All Systems: The remainder of the systems were reviewed and are negative Review of Systems: Constitutional: Reports occasional night sweats. Denies fevers, chills, weight loss, generalized fatigue Head/Neck: Denies BOBO, neck stiffness EENT: Reports hemoptysis. Denies vision changes/blurriness, rhinorrhea, congestion, sore throat CVS: Denies chest pain, palpitations, orthopnea, edema Pulm: Reports SOB, cough, hemoptysis. Denies wheezing GI: Denies abdominal pain, nausea, vomiting, diarrhea, constipation, melena, hematemasis : Denies dysuria, increased frequency, urgency, hematuria Heme: Denies ease of bleeding or bruising MSK: Denies joint pain, limited ROM Skin: Denies rashes, ulcers, color changes Neuro: Denies BOBO, paresthesias, focal deficits, ataxia Physical Examination Vital Signs: Vital Signs, Last 4 Hours Pulse Resp BP Pulse Ox 06/16/19 06:00 90 12 117/68 94 06/16/19 05:00 81 16 119/65 93 06/16/19 04:09 96 Gen: Vitals noted. No acute distress. Lying comfortably in bed. Eyes: anicteric sclerae, moist conjunctivae. Pupils equal, round, and reactive to light HENT: Atraumatic, normocephalic. Oropharynx clear with moist mucous membranes and no mucosal ulcerations. Some dried blood on roof of mouth Neck: Trachea midline; supple, no thyromegaly or lymphadenopathy Cardiac: Irregularly irregular Rhythm. No murmurs, rubs or gallops, S1/S2 Pulmonary: R-sided Ronchi in middle and lower lobes. no wheezes, or crackles. equal chest expansion Abdomen: soft, nontender, no rigidity or guarding. No masses or hepatosplenomegaly MSK: ROM intact, no joint swelling noted Extremities: no BLE edema, nontender calf, no cyanosis or clubbing Skin: Normal temperature, turgor and texture; no rash, ulcers or subcutaneous nodules Neuro: moves all extremities, no focal deficits. Psych: Appropriate mood and behavior. A&Ox3 Results - Laboratory Findings CBC and BMP: 06/16/19 04:58 06/16/19 04:58 PT/INR, D-dimer PT 25.6 Seconds (9.4-12.1) H D 06/16/19 04:58 D-Dimer 1273 ng/mLFEU (0-500) H 06/15/19 14:24 Abnormal lab findings: Abnormal lab results WBC 11.6 K/mcL (4.3-11.1) H D 06/16/19 04:58 RBC 3.71 M/mcL (4.19-5.50) L 06/16/19 04:58 Hgb 11.7 g/dL (12.9-16.9) L D 06/16/19 04:58 Hct 34.4 % (37.5-50.1) L 06/16/19 04:58 Immature Gran % 5.3 % (0-4) H 06/16/19 04:58 Myelocytes % 2.0 % (0) H 06/15/19 14:24 Neutrophils # 9.5 K/mcL (1.6-8.9) H 06/16/19 04:58 Monocytes # 1.7 K/mcL (0.0-1.3) H 06/15/19 14:24 Nucleated RBCs/100 WBC 0.1 /100 WBC (0) H 06/15/19 14:24 Reactive Lymphocytes Present (Not Present) A 06/15/19 14:24 Toxic Granulation Present (Not Present) A 06/15/19 14:24 Large Platelets Present (Not Present) A 06/15/19 14:24 Polychromasia 1+ (Not Present) A 06/15/19 14:24 PT 25.6 Seconds (9.4-12.1) H D 06/16/19 04:58 INR > 29.6 H* 06/15/19 14:24 APTT 130.5 Seconds (26.0-36.0) H* 06/15/19 14:24 D-Dimer 1273 ng/mLFEU (0-500) H 06/15/19 14:24 Heparin Anti-Xa, Unfract 0.00 IU/mL (0.30-0.70) L 06/15/19 14:24 Sodium 134 mEq/L (136-145) L 06/16/19 04:58 Chloride 96 mEq/L (98-107) L 06/15/19 14:24 Carbon Dioxide 20 mEq/L (23-29) L 06/16/19 04:58 BUN 34 mg/dL (8-23) H 06/16/19 04:58 Est GFR (Non-Af Amer) 58 (> 60) L 06/15/19 14:24 BUN/Creatinine Ratio 37 (6-26) H 06/16/19 04:58 Glucose 171 mg/dL (70-105) H 06/16/19 04:58 POC Glucose 202 mg/dL (70-99) H 06/15/19 23:37 Calcium 8.4 mg/dL (8.6-10.3) L 06/16/19 04:58 Phosphorus 2.5 mg/dL (2.7-4.5) L 06/16/19 04:58 Troponin I 0.04 ng/mL (< 0.04) H* 06/15/19 23:18 B-Natriuretic Peptide 415 pg/mL (Less than 100) H 06/15/19 14:24 - Microbiology Findings Microbiology Findings: Microbiology, Last 48 Hours 06/15/19 21:15 Legionella Antigen - Final Urine,Clean Catch Streptococcus pneumoniae Antigen (M - Final - Clinical Findings Intake & Output: Intake & Output 06/15/19 06/16/19 06/16/19 23:59 07:59 15:59 Intake Total 2240 / 2250 100 / 100 Output Total 450 / 450 600 / 600 Balance 1790 / 1800 -500 / -500 Weight 94 kg
[2019-06-16] MEDS ORDERED: Ipratropium/Albuterol Neb 3 ML IH ONE (08:29)
[2019-06-16] MEDS ORDERED: Dextrose Gel 15 GM/37.5 ML TUBE PO PRN ×2 (08:29)
[2019-06-16] MEDS ORDERED: D5% in Water 1,000 ML IVC PRN (08:29)
[2019-06-16] MEDS ORDERED: *HR* Dextrose 50 % in Water (Syg) 50 ML SYRINGE IVP PRN (08:29)
[2019-06-16] MEDS ORDERED: Ipratropium/Albuterol Neb 3 ML IH PRN (08:29)
[2019-06-16] MEDS ORDERED: Insulin LISPRO 300 UNITS/3 ML VIAL SQ SCH (12:00)
[2019-06-16] MEDS ORDERED: levoFLOXacin 750 MG/150 ML 750 MG/150 ML BAG IVPB ONE (15:33)
--- NOTE | 2019-06-16 16:30 | Electrocardiograph Report ---
[address] [address] Test Date: 2019-06-15 Pat Name: Donald Navarrete Department: EXAM12 Room: 2A Gender: M Respiratory Supervisor: : 1945 Requested By: Josh Levy Order Number: [id number] Reading MD: Fox Elmore Measurements Intervals [place] Rate: 172 P: OR: QRS: 79 QRSD: 91 T: 73 QT: 266 QTc: 450 Interpretive Statements Atrial fibrillation with rapid V-rate Low voltage, precordial leads Electronically Signed On 06-16-2019 16:28:41 EDT by Fox Elmore
[2019-06-16 18:06] LABS: INR 2.9
[2019-06-16] MEDS: methylPREDNISolone 125 MG/2 ML VIAL IVP SCH (18:16)
[2019-06-16] MEDS: Diltiazem CD (24hr) 120 MG CAPSULE PO SCH (18:47)
[2019-06-16] MEDS ORDERED: *HR* Phytonadione 5 MG TABLET PO ONE (18:52)
[2019-06-16] MEDS ORDERED: levoFLOXacin 750 MG/150 ML 750 MG/150 ML BAG IVPB SCH (20:00)
--- NOTE | 2019-06-16 20:12 | Anesthesia Evaluation PreOp ---
Date of Encounter: 06/16/19 Time of Encounter: 20:10 - Past History Alcohol Use: none Drug use: none Medications and Allergies Allopurinol [Zyloprim 300 MG] 300 mg PO DAILY 06/16/19 [History] Citalopram [CeleXA] 20 mg PO DAILY 06/16/19 [History] Gemfibrozil [Lopid] 600 mg PO BID 06/16/19 [History] Omeprazole [PriLOSEC] 20 mg PO DAILY 06/16/19 [History] Warfarin [Coumadin] 2.5 mg PO 3XW 06/16/19 [History] Warfarin [Coumadin] 5 mg PO 3XW 06/16/19 [History] clonazePAM [Clonazepam] 0.5 mg PO BID 06/16/19 [History] Allergy/AdvReac Type Severity Reaction Status Date / Time hydrocodone [From Vicodin] Allergy Itching Verified 06/15/19 15:16 oxycodone [From Percocet] Allergy Itching Verified 06/15/19 15:17 Anesthesia Results - Labs 06/16/19 04:58 06/16/19 04:58 - Imaging Additional studies: Name: Donald Navarrete Date of Study: 06/16/2019 Impressions: LVEF 50-55%. Indeterminate diastolic function. Mildly dilated right ventricle with mild right ventricular hypokinesis. Mild biatrial enlargement. Mild tricuspid regurgitation. No pulmonary hypertension. Anesthesia Exam Vital Signs/O2 Sat, Most Current Temp Pulse Resp BP Pulse Ox 97.6 F 90 17 119/79 94 06/16/19 19:16 06/16/19 19:16 06/16/19 19:16 06/16/19 19:16 06/16/19 19:16
[2019-06-16] MEDS: clonazePAM 0.5 MG TABLET PO SCH (20:56)
[2019-06-16] MEDS: Budesonide/Formoterol 160/4.5 1 PUFF INH IH SCH (22:44)
[2019-06-17] MEDS: Ipratropium/Albuterol Neb 3 ML IH SCH ×4 (03:40→22:23)
[2019-06-17 04:24] LABS: Hematocrit 33.3 % (37.5-50.1); Hemoglobin 11.2 g/dL (12.9-16.9); Mean Corpuscular HGB Conc 33.6 g/dL (31.6-35.5); Mean Corpuscular Hemoglobin 31.6 pg (28.0-33.3); Mean Corpuscular Volume 94.1 fL (83.0-100.0); Mean Platelet Volume 9.9 fL (9.4-12.4); Platelet Count 282 K/mcL (140-400); Red Blood Count 3.54 M/mcL (4.19-5.50); Red Cell Distribution Width 14.1 % (11.5-14.5); White Blood Count 13.2 K/mcL (4.3-11.1)
[2019-06-17 04:39] LABS: INR 3.3; Lymphocytes # 0.3 K/mcL (0.6-4.6); Monocytes # 0.3 K/mcL (0.0-1.3); Neutrophils # 12.7 K/mcL (1.6-8.9); Prothrombin Time 37.4 Seconds (9.4-12.1)
[2019-06-17 04:40] LABS: Platelet Estimate Normal (Normal)
[2019-06-17 04:45] LABS: BUN/Creatinine Ratio 34 (6-26); Blood Urea Nitrogen 33 mg/dL (8-23); Calcium 8.6 mg/dL (8.6-10.3); Carbon Dioxide 24 mEq/L (23-29); Chloride 98 mEq/L (98-107); Glucose 222 mg/dL (70-105); Osmolality,Calculated 292 (280-300); Potassium 3.6 mEq/L (3.5-5.1); Sodium 134 mEq/L (136-145); eGFR For African Americans > 60 (> 60); eGFR For Non-African Americans > 60 (> 60)
[2019-06-17] MEDS: methylPREDNISolone 125 MG/2 ML VIAL IVP SCH (05:32)
--- NOTE | 2019-06-17 08:06 | Pulmonology Progress Note ---
<BharatTanvir Patricio - Last Filed: 06/17/19 11:41> Date of Encounter: 06/17/19 Time of Encounter: 08:05 Assessment and Plan (1) Acute respiratory failure with hypoxia Current Visit: Yes Status: Acute Acute Respiratory failure with hypoxia - Pt remains on 4L via nasal canula Plan: - Solumedrol 60mg BID can be switched to prednisone 40mg PO - Levaquin day 3 - Duonebs q6h - Symbicort 160/4.5 2 puffs BID (2) Hemoptysis Current Visit: Yes Status: Acute Hemoptysis - No episodes overnight Plan: - INR increased to 3.3, unable to perform bronchoscopy today - Follow-up with Pulmonology in 2-4 weeks. (3) Community acquired pneumonia Current Visit: Yes Status: Acute Community acquired pnuemonia - Mrsa screen negative - Legionella, strep pneumo antigen negative Plan: - Cont Levaquin - Follow-up sputum culture results - Follow-up CT in 4-6 weeks for resolution Qualifiers: Laterality: right Lung location: upper lobe of lung Qualified Code(s): J18.1 - Lobar pneumonia, unspecified organism (4) Incidental lung nodule, greater than or equal to 8mm Current Visit: Yes Status: Acute Mulitple lung nodules on CTA - 9mm nodule in R lower lobe - 5.7mm nodule in L upper lobe Plan: - Fleischner Society Guidelines, follow-up CT 3-6 months, then CT in 18-24 months. (5) COPD exacerbation Current Visit: Yes Status: Acute Pt presenting with COPD exacerbation Plan: - Switch Solumedrol to prednisone 40mg to complete 5 day course. - Duonebs q6h - Symbicort BID - Albuterol PRN (6) Supratherapeutic INR Current Visit: Yes Status: Acute Supratherapeutic INR - Reversed with VitK - 3.3 today Subjective Interval history: Patient seen and examined. Afebrile. No overnight events. Patient denies any episodes of hemoptysis overnight. Patient sitting comfortably in chair, no signs of respiratory distress. His INR increased to 3.3. Objective PUL Vital signs: Last Vital Signs Temp 97.6 F 06/17/19 07:16 Pulse 83 06/17/19 07:16 Resp 20 06/17/19 07:16 BP 112/68 06/17/19 07:16 Pulse Ox 94 06/17/19 07:16 Gen: Vitals noted. No acute distress. Sitting comfortably in chair Eyes: anicteric sclerae, moist conjunctivae, Pupils equal and reactive to light HENT: Atraumatic, normocephalic. Oropharynx clear with moist mucous membranes and no mucosal ulcerations Neck: Trachea midline. No thyromegaly or lymphadenopathy Cardiac: Irregular Rate. No murmurs, rubs, or gallops, S1/S2 Pulmonary: Coarse right-sided breah sounds. No adventitious sounds on the left. No wheezes, rales or rhonchi, equal chest expansion Abdomen: soft, nontender, no rigidity or guarding. No masses or hepatosplenomegaly MSK: ROM intact, no joint swelling noted Extremities: no BLE edema, nontender calf, no cyanosis or clubbing Skin: Normal temperature, turgor and texture. No rash, ulcers or subcutaneous nodules Neuro: moves all extremities, no focal deficits. Psych: Appropriate mood and behavior. A&Ox3 Results - Laboratory Findings CBC and BMP: 06/17/19 04:06 06/17/19 04:06 PT/INR, D-dimer PT 37.4 Seconds (9.4-12.1) H 06/17/19 04:06 D-Dimer 1273 ng/mLFEU (0-500) H 06/15/19 14:24 Abnormal lab findings: Abnormal lab results WBC 13.2 K/mcL (4.3-11.1) H 06/17/19 04:06 RBC 3.54 M/mcL (4.19-5.50) L 06/17/19 04:06 Hgb 11.2 g/dL (12.9-16.9) L 06/17/19 04:06 Hct 33.3 % (37.5-50.1) L 06/17/19 04:06 Immature Gran % 5.3 % (0-4) H 06/16/19 04:58 Myelocytes % 2.0 % (0) H 06/15/19 14:24 Neutrophils # 12.7 K/mcL (1.6-8.9) H 06/17/19 04:06 Lymphocytes # 0.3 K/mcL (0.6-4.6) L 06/17/19 04:06 Monocytes # 1.7 K/mcL (0.0-1.3) H 06/15/19 14:24 Nucleated RBCs/100 WBC 0.1 /100 WBC (0) H 06/15/19 14:24 Reactive Lymphocytes Present (Not Present) A 06/15/19 14:24 Toxic Granulation Present (Not Present) A 06/15/19 14:24 Large Platelets Present (Not Present) A 06/15/19 14:24 Polychromasia 1+ (Not Present) A 06/15/19 14:24 PT 37.4 Seconds (9.4-12.1) H 06/17/19 04:06 INR > 29.6 H* 06/15/19 14:24 APTT 130.5 Seconds (26.0-36.0) H* 06/15/19 14:24 D-Dimer 1273 ng/mLFEU (0-500) H 06/15/19 14:24 Heparin Anti-Xa, Unfract 0.00 IU/mL (0.30-0.70) L 06/15/19 14:24 Sodium 134 mEq/L (136-145) L 06/17/19 04:06 Chloride 96 mEq/L (98-107) L 06/15/19 14:24 Carbon Dioxide 20 mEq/L (23-29) L 06/16/19 04:58 BUN 33 mg/dL (8-23) H 06/17/19 04:06 Est GFR (Non-Af Amer) 58 (> 60) L 06/15/19 14:24 BUN/Creatinine Ratio 34 (6-26) H 06/17/19 04:06 Glucose 222 mg/dL (70-105) H 06/17/19 04:06 POC Glucose 213 mg/dL (70-99) H 06/17/19 05:26 Calcium 8.4 mg/dL (8.6-10.3) L 06/16/19 04:58 Phosphorus 2.5 mg/dL (2.7-4.5) L 06/16/19 04:58 Troponin I 0.04 ng/mL (< 0.04) H* 06/15/19 23:18 B-Natriuretic Peptide 415 pg/mL (Less than 100) H 06/15/19 14:24 - Microbiology Findings Microbiology Findings: Microbiology, Last 48 Hours 06/16/19 14:58 Sputum Culture - Preliminary Sputum 06/15/19 21:15 Legionella Antigen - Final Urine,Clean Catch Streptococcus pneumoniae Antigen (M - Final - Clinical Findings Intake & Output: Intake & Output 06/16/19 06/17/19 06/17/19 23:59 07:59 15:59 Intake Total 195 / 455 Output Total 325 / 925 600 / 600 Balance -130 / -470 -600 / -600 Weight 98 kg - VTE Reasons for not Prescribing Prophylaxis: Not indicated-Anticoagulated or INR therapeutic Consult Discharge Plan - Plan Referrals: NONE,PCP [Primary Care Provider] - <Faustino Herrera W - Last Filed: 06/17/19 11:47> Date of Encounter: 06/17/19 Objective PUL Vital signs: Last Vital Signs Temp 97.6 F 06/17/19 11:25 Pulse 86 06/17/19 11:25 Resp 18 06/17/19 11:25 BP 116/66 06/17/19 11:25 Pulse Ox 91 06/17/19 11:25 Results - Laboratory Findings CBC and BMP: 06/17/19 04:06 06/17/19 04:06 PT/INR, D-dimer PT 37.4 Seconds (9.4-12.1) H 06/17/19 04:06 D-Dimer 1273 ng/mLFEU (0-500) H 06/15/19 14:24 Abnormal lab findings: Abnormal lab results WBC 13.2 K/mcL (4.3-11.1) H 06/17/19 04:06 RBC 3.54 M/mcL (4.19-5.50) L 06/17/19 04:06 Hgb 11.2 g/dL (12.9-16.9) L 06/17/19 04:06 Hct 33.3 % (37.5-50.1) L 06/17/19 04:06 Immature Gran % 5.3 % (0-4) H 06/16/19 04:58 Myelocytes % 2.0 % (0) H 06/15/19 14:24 Neutrophils # 12.7 K/mcL (1.6-8.9) H 06/17/19 04:06 Lymphocytes # 0.3 K/mcL (0.6-4.6) L 06/17/19 04:06 Monocytes # 1.7 K/mcL (0.0-1.3) H 06/15/19 14:24 Nucleated RBCs/100 WBC 0.1 /100 WBC (0) H 06/15/19 14:24 Reactive Lymphocytes Present (Not Present) A 06/15/19 14:24 Toxic Granulation Present (Not Present) A 06/15/19 14:24 Large Platelets Present (Not Present) A 06/15/19 14:24 Polychromasia 1+ (Not Present) A 06/15/19 14:24 PT 37.4 Seconds (9.4-12.1) H 06/17/19 04:06 INR > 29.6 H* 06/15/19 14:24 APTT 130.5 Seconds (26.0-36.0) H* 06/15/19 14:24 D-Dimer 1273 ng/mLFEU (0-500) H 06/15/19 14:24 Heparin Anti-Xa, Unfract 0.00 IU/mL (0.30-0.70) L 06/15/19 14:24 Sodium 134 mEq/L (136-145) L 06/17/19 04:06 Chloride 96 mEq/L (98-107) L 06/15/19 14:24 Carbon Dioxide 20 mEq/L (23-29) L 06/16/19 04:58 BUN 33 mg/dL (8-23) H 06/17/19 04:06 Est GFR (Non-Af Amer) 58 (> 60) L 06/15/19 14:24 BUN/Creatinine Ratio 34 (6-26) H 06/17/19 04:06 Glucose 222 mg/dL (70-105) H 06/17/19 04:06 POC Glucose 213 mg/dL (70-99) H 06/17/19 05:26 Calcium 8.4 mg/dL (8.6-10.3) L 06/16/19 04:58 Phosphorus 2.5 mg/dL (2.7-4.5) L 06/16/19 04:58 Troponin I 0.04 ng/mL (< 0.04) H* 06/15/19 23:18 B-Natriuretic Peptide 415 pg/mL (Less than 100) H 06/15/19 14:24 - Microbiology Findings Microbiology Findings: Microbiology, Last 48 Hours 06/16/19 14:58 Sputum Culture - Preliminary Sputum 06/15/19 21:15 Legionella Antigen - Final Urine,Clean Catch Streptococcus pneumoniae Antigen (M - Final - Clinical Findings Intake & Output: Intake & Output 06/16/19 06/17/19 06/17/19 23:59 07:59 15:59 Intake Total 195 / 455 240 / 240 Output Total 325 / 925 600 / 600 Balance -130 / -470 -600 / -360 240 / -360 Weight 98 kg - Attending Attestation I examined this patient and my medical decision-making was reviewed with the Resident Physician. I agree with the documented findings, disposition and treatment plan as described except to the extent set forth below. We independently had [id number] contact with the patient Patient seen and examined at bedside Labs, radiology, chart personally reviewed. Impression/Recs: Mr. Jeans INR is greater than 3 today and would not be a candidate for bronchoscopy. He has had no further hemoptysis despite having INR in the 2-3 range. On balance I favor continuation of antibiotic therapy given in clinical stability for pneumonia for 7-10 days with follow-up CT scan in 4-6 weeks. 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 We will check in with him tomorrow and if there is not been any further episodes of hemoptysis can likely be safely discharged Thank you very much for the consultation
[2019-06-17] MEDS: clonazePAM 0.5 MG TABLET PO SCH ×2 (09:27→20:17)
[2019-06-17] MEDS: Insulin LISPRO 300 UNITS/3 ML VIAL SQ SCH ×3 (09:28→17:23)
--- NOTE | 2019-06-17 09:39 | Internal Med Progress Note ---
Hospitalist Progress Note - Encounter Date of Encounter: 06/17/19 Time of Encounter: 09:39 - Subjective Interval History: Patient seen and examined this morning because of. No acute overnight events. Denies any fever or chills nausea vomiting or diarrhea. Breathing much improved. Denies any headache chest pain difficulty breathing abdominal pain. Denies any cough with sputum. - Exam Vitals: Temp Pulse Resp BP Pulse Ox 97.6 F 83 20 112/68 94 06/17/19 07:16 06/17/19 07:16 06/17/19 07:16 06/17/19 07:16 06/17/19 07:16 Exam: Constitutional: In no distress Respiratory : minimal rhonchi on Rt with pleural rub. improved air entry. Cardiovascular : RRR, +S1, +S2. no murmur, gallop, rubs. No chest wall tenderness GI/Abdominal : Soft, Non-tender, Non-distended, normal bowel sounds, Musculoskeletal: no deformity noted, no edema or cyanosis, pulses palpable and symmetrical in UE/LE. no calf tenderness. Neurological: AO X3, CN II-XII grossly intact, grossly normal motor and sensory exam. Skin: No skin rash, lesions or ulcers noted. - Assessment and Plan (1) Acute respiratory failure with hypoxia Current Visit: Yes Status: Acute (2) Supratherapeutic INR Current Visit: Yes Status: Acute (3) Hemoptysis Current Visit: Yes Status: Acute (4) Pneumonia Current Visit: Yes Status: Acute (5) Elevated troponin I level Current Visit: Yes Status: Acute (6) Atrial fibrillation with RVR Current Visit: Yes Status: Acute - Summary of Assessment and Plan Summary of Assessment and Plan: Assessment Acute Acute respiratory failure with hypoxia-resolved supratherpeutic INR Hemoptysis-resolved Pneumonia-rt lung , unclear organism Lung nodule elevated troponin COPD exacerbation AFib with RVR Chronic afib copd PAD anxiety gout former smoker Plan - continue with empiric levaquin for pneumonia. RIP and urine ag negative. f/u sputum culture. MRSA negative. - change solumedrol to Prednisone PO 40 mg from tomorrow and c/w bronchodilator for COPD exacerbation. c/w supplemental oxygen. resume home advair and omeprazole - Was given Vit K and Kcentra for supratherapeutic INR with hemoptysis. INR improved but elevated today afte 2nd dose of vitamin K. Hold coumadin for now. Pulmonology following. Decided to do bronchoscopy outpatient as INR still elevated. Will also need follow up for lung nodule. - started on home PO cardizem. Rate control. Hold warfarin for now. Has Machine at home. Will need close monitoring if we resume on discharge. supratherapeutic INR possibly from azithromycin interaction. - elevated troponin likely from likely demand ischemia with COPD exacerbation, pneumonia and afib with RVR. EKG without ischemic changes. echocardiogram with EF 50-55, intermediate DD, mild dilater Rt RV, no Pulm HTN - Will walk the patient and how much oxygen he needs. May consider DC depending on how well he does. - resume home medications. Internal Medicine: Result - Labs CBC & Chem 7: 06/17/19 04:06 06/17/19 04:06 Labs: Short CBC 06/17/19 Range/Units 04:06 WBC 13.2 H (4.3-11.1) K/mcL Hgb 11.2 L (12.9-16.9) g/dL Hct 33.3 L (37.5-50.1) % Plt Count 282 (140-400) K/mcL Neutrophils # 12.7 H (1.6-8.9) K/mcL BMP 06/17/19 04:06 Sodium 134 L Potassium 3.6 Chloride 98 Carbon Dioxide 24 BUN 33 H Creatinine 0.97 Glucose 222 H Calcium 8.6 - ABG Interpretation ABG results: PT/INR, D-dimer PT 37.4 Seconds (9.4-12.1) H 06/17/19 04:06 D-Dimer 1273 ng/mLFEU (0-500) H 06/15/19 14:24 - VTE Reasons for not Prescribing Prophylaxis: Not indicated-Anticoagulated or INR therapeutic Consult Discharge Plan - Plan Referrals: NONE,PCP [Primary Care Provider] - (4) Pneumonia Qualifiers: Pneumonia type: due to unspecified organism Laterality: right Lung location: unspecified part of lung Qualified Code(s): J18.9 - Pneumonia, unspecified [facility]
[2019-06-17] MEDS: Budesonide/Formoterol 160/4.5 1 PUFF INH IH SCH ×2 (10:10→22:23)
[2019-06-17] MEDS: levoFLOXacin 750 MG/150 ML 750 MG/150 ML BAG IVPB SCH (16:38)
[2019-06-17] MEDS: Diltiazem CD (24hr) 120 MG CAPSULE PO SCH (18:18)
[2019-06-17] MEDS ORDERED: MethylPREDNISolone 40 MG/ML VIAL IVP ONE (19:00)
[2019-06-17] MEDS ORDERED: NON-FORMULARY MEDICATION 1 EACH EACH (Fluticasone/Salmeterol [Advair 250-50 Diskus] 1 PUFF PO SCH (21:00)
[2019-06-18 02:01] LABS: Basophils % 0.2 %; Lymphocytes # 0.4 K/mcL (0.6-4.6); Lymphocytes % 4.3 %; Mean Corpuscular HGB Conc 33.3 g/dL (31.6-35.5); Mean Corpuscular Hemoglobin 31.3 pg (28.0-33.3); Mean Corpuscular Volume 93.8 fL (83.0-100.0); Mean Platelet Volume 9.9 fL (9.4-12.4); Monocytes # 0.3 K/mcL (0.0-1.3); Monocytes % 3.1 %; Neutrophils # 8.3 K/mcL (1.6-8.9); Platelet Count 263 K/mcL (140-400); Red Blood Count 3.52 M/mcL (4.19-5.50); Red Cell Distribution Width 14.1 % (11.5-14.5); Segmented Neutrophils % 86.4 %; White Blood Count 9.6 K/mcL (4.3-11.1)
[2019-06-18 02:10] LABS: INR 2.9; Prothrombin Time 33.1 Seconds (9.4-12.1)
[2019-06-18 02:17] LABS: BUN/Creatinine Ratio 35 (6-26); Blood Urea Nitrogen 30 mg/dL (8-23); Calcium 8.3 mg/dL (8.6-10.3); Carbon Dioxide 24 mEq/L (23-29); Chloride 100 mEq/L (98-107); Glucose 236 mg/dL (70-105); Osmolality,Calculated 288 (280-300); Potassium 3.1 mEq/L (3.5-5.1); Sodium 132 mEq/L (136-145); eGFR For African Americans > 60 (> 60); eGFR For Non-African Americans > 60 (> 60)
[2019-06-18 03:15] LABS: Platelet Estimate Normal (Normal)
[2019-06-18] MEDS: Ipratropium/Albuterol Neb 3 ML IH SCH ×2 (03:55→10:28)
[2019-06-18 07:59] VITALS: BP 118/70
--- NOTE | 2019-06-18 08:06 | Pulmonology Progress Note ---
<MonasophiaFaustino tucker W - Last Filed: 06/18/19 09:39> Date of Encounter: 06/18/19 Objective PUL Vital signs: Last Vital Signs Temp 97.7 F 06/18/19 07:56 Pulse 78 06/18/19 07:56 Resp 18 06/18/19 07:56 BP 118/70 06/18/19 07:56 Pulse Ox 92 06/18/19 07:56 Results - Laboratory Findings CBC and BMP: 06/18/19 01:47 06/18/19 01:47 PT/INR, D-dimer PT 33.1 Seconds (9.4-12.1) H 06/18/19 01:47 D-Dimer 1273 ng/mLFEU (0-500) H 06/15/19 14:24 Abnormal lab findings: Abnormal lab results WBC 13.2 K/mcL (4.3-11.1) H 06/17/19 04:06 RBC 3.52 M/mcL (4.19-5.50) L 06/18/19 01:47 Hgb 11.0 g/dL (12.9-16.9) L 06/18/19 01:47 Hct 33.0 % (37.5-50.1) L 06/18/19 01:47 Immature Gran % 6.0 % (0-4) H 06/18/19 01:47 Myelocytes % 2.0 % (0) H 06/15/19 14:24 Neutrophils # 12.7 K/mcL (1.6-8.9) H 06/17/19 04:06 Lymphocytes # 0.4 K/mcL (0.6-4.6) L 06/18/19 01:47 Monocytes # 1.7 K/mcL (0.0-1.3) H 06/15/19 14:24 Nucleated RBCs/100 WBC 0.1 /100 WBC (0) H 06/15/19 14:24 Reactive Lymphocytes Present (Not Present) A 06/15/19 14:24 Toxic Granulation Present (Not Present) A 06/15/19 14:24 Large Platelets Present (Not Present) A 06/15/19 14:24 Polychromasia 1+ (Not Present) A 06/15/19 14:24 PT 33.1 Seconds (9.4-12.1) H 06/18/19 01:47 INR > 29.6 H* 06/15/19 14:24 APTT 130.5 Seconds (26.0-36.0) H* 06/15/19 14:24 D-Dimer 1273 ng/mLFEU (0-500) H 06/15/19 14:24 Heparin Anti-Xa, Unfract 0.00 IU/mL (0.30-0.70) L 06/15/19 14:24 Sodium 132 mEq/L (136-145) L 06/18/19 01:47 Potassium 3.1 mEq/L (3.5-5.1) L 06/18/19 01:47 Chloride 96 mEq/L (98-107) L 06/15/19 14:24 Carbon Dioxide 20 mEq/L (23-29) L 06/16/19 04:58 BUN 30 mg/dL (8-23) H 06/18/19 01:47 Est GFR (Non-Af Amer) 58 (> 60) L 06/15/19 14:24 BUN/Creatinine Ratio 35 (6-26) H 06/18/19 01:47 Glucose 236 mg/dL (70-105) H 06/18/19 01:47 POC Glucose 218 mg/dL (70-99) H 06/18/19 00:26 Calcium 8.3 mg/dL (8.6-10.3) L 06/18/19 01:47 Phosphorus 2.5 mg/dL (2.7-4.5) L 06/16/19 04:58 Troponin I 0.04 ng/mL (< 0.04) H* 06/15/19 23:18 B-Natriuretic Peptide 415 pg/mL (Less than 100) H 06/15/19 14:24 - Microbiology Findings Microbiology Findings: Microbiology, Last 48 Hours 06/16/19 14:58 Sputum Culture - Preliminary Sputum Gram Negative Ronal - Clinical Findings Intake & Output: Intake & Output 06/17/19 06/18/19 06/18/19 23:59 07:59 15:59 Intake Total 510 / 750 Output Total 0 / 600 150 / 150 Balance 510 / 150 -150 / -150 Weight 195 kg Consult Discharge Plan - Plan Instructions: Atrial Fibrillation (DC), Acute Respiratory Distress Syndrome (DC), Chronic Obstructive Pulmonary Disease (DC), Sepsis (DC), Pneumonia (DC) Referrals: NONE,PCP [Primary Care Provider] - Prescriptions: Warfarin [Coumadin] 2 mg PO 1800 #30 tablet levoFLOXacin [Levaquin] 750 mg PO DAILY #6 tablet predniSONE [PredniSONE] 40 mg PO DAILY #5 tablet - Attending Attestation I examined this patient and my medical decision-making was reviewed with the Resident Physician. I agree with the documented findings, disposition and treatment plan as described except to the extent set forth below. We independently had [id number] contact with the patient Patient seen and examined at bedside Labs, radiology, chart personally reviewed. Impression/Recs: Clinically improving. Although the sample was not of good quality patient growing gram-negative ronal pending final speciation until that time would recommend continuation of respiratory fluoroquinolone (and likely subsequently) for a total of 7-10 days based upon clinical response Prednisone burst 5 days of total steroid Outpatient pulmonary follow-up with CT Scan to be repeated in 4-6 weeks Pulmonary will sign off thank you very much for this consultation Do not hesitate to call me with any questions or concerns Luis Herrera [phone] <Tanvir Nicholson - Last Filed: 06/18/19 10:44> Date of Encounter: 06/18/19 Time of Encounter: 08:06 Assessment and Plan (1) Acute respiratory failure with hypoxia Current Visit: Yes Status: Acute Acute Respiratory failure with hypoxia - Pt remains on 2L via nasal cannula Plan: - Solumedrol 60mg BID can be switched to prednisone 40mg PO - Levaquin day 4 - Duonebs q6h - Symbicort 160/4.5 2 puffs BID (2) Hemoptysis Current Visit: Yes Status: Acute Hemoptysis - No episodes overnight Plan: - Follow-up with Pulmonology in 2-4 weeks. (3) Community acquired pneumonia Current Visit: Yes Status: Acute Community acquired pnuemonia - Mrsa screen negative - Legionella, strep pneumo antigen negative - Sputum culture growing Stenotrophomonas maltophilia sensitive to Levaquin Plan: - Cont Levaquin - Follow-up CT in 4-6 weeks for resolution Qualifiers: Laterality: right Lung location: upper lobe of lung Qualified Code(s): J18.1 - Lobar pneumonia, unspecified organism (4) Incidental lung nodule, greater than or equal to 8mm Current Visit: Yes Status: Acute Mulitple lung nodules on CTA - 9mm nodule in R lower lobe - 5.7mm nodule in L upper lobe Plan: - Fleischner Society Guidelines, follow-up CT 3-6 months, then CT in 18-24 months. (5) COPD exacerbation Current Visit: Yes Status: Acute Pt presenting with COPD exacerbation Plan: - Switch Solumedrol to prednisone 40mg to complete 5 day course. - Duonebs q6h - Symbicort BID - Albuterol PRN Subjective Interval history: Patient seen and examined. Afebrile. No overnight events. No new episodes of hemoptysis. 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 Objective PUL Vital signs: Last Vital Signs Temp 97.7 F 06/18/19 07:56 Pulse 78 06/18/19 07:56 Resp 18 06/18/19 07:56 BP 118/70 06/18/19 07:56 Pulse Ox 92 06/18/19 07:56 Gen: Vitals noted. No acute distress. Lying comfortably in bed Eyes: anicteric sclerae, moist conjunctivae, Pupils equal and reactive to light HENT: Atraumatic, normocephalic. Oropharynx clear with moist mucous membranes and no mucosal ulcerations Neck: Trachea midline. No thyromegaly or lymphadenopathy Cardiac: Irregular Rate. No murmurs, rubs, or gallops, S1/S2 Pulmonary: Lungs clear to auscultation. No wheezes, rales or rhonchi, equal chest expansion Abdomen: soft, nontender, no rigidity or guarding. No masses or hepatosplenomegaly MSK: ROM intact, no joint swelling noted Extremities: no BLE edema, nontender calf, no cyanosis or clubbing Skin: Normal temperature, turgor and texture. No rash, ulcers or subcutaneous nodules Neuro: moves all extremities, no focal deficits. Psych: Appropriate mood and behavior. A&Ox3 Results - Laboratory Findings CBC and BMP: 06/18/19 01:47 06/18/19 01:47 PT/INR, D-dimer PT 33.1 Seconds (9.4-12.1) H 06/18/19 01:47 D-Dimer 1273 ng/mLFEU (0-500) H 06/15/19 14:24 Abnormal lab findings: Abnormal lab results WBC 13.2 K/mcL (4.3-11.1) H 06/17/19 04:06 RBC 3.52 M/mcL (4.19-5.50) L 06/18/19 01:47 Hgb 11.0 g/dL (12.9-16.9) L 06/18/19 01:47 Hct 33.0 % (37.5-50.1) L 06/18/19 01:47 Immature Gran % 6.0 % (0-4) H 06/18/19 01:47 Myelocytes % 2.0 % (0) H 06/15/19 14:24 Neutrophils # 12.7 K/mcL (1.6-8.9) H 06/17/19 04:06 Lymphocytes # 0.4 K/mcL (0.6-4.6) L 06/18/19 01:47 Monocytes # 1.7 K/mcL (0.0-1.3) H 06/15/19 14:24 Nucleated RBCs/100 WBC 0.1 /100 WBC (0) H 06/15/19 14:24 Reactive Lymphocytes Present (Not Present) A 06/15/19 14:24 Toxic Granulation Present (Not Present) A 06/15/19 14:24 Large Platelets Present (Not Present) A 06/15/19 14:24 Polychromasia 1+ (Not Present) A 06/15/19 14:24 PT 33.1 Seconds (9.4-12.1) H 06/18/19 01:47 INR > 29.6 H* 06/15/19 14:24 APTT 130.5 Seconds (26.0-36.0) H* 06/15/19 14:24 D-Dimer 1273 ng/mLFEU (0-500) H 06/15/19 14:24 Heparin Anti-Xa, Unfract 0.00 IU/mL (0.30-0.70) L 06/15/19 14:24 Sodium 132 mEq/L (136-145) L 06/18/19 01:47 Potassium 3.1 mEq/L (3.5-5.1) L 06/18/19 01:47 Chloride 96 mEq/L (98-107) L 06/15/19 14:24 Carbon Dioxide 20 mEq/L (23-29) L 06/16/19 04:58 BUN 30 mg/dL (8-23) H 06/18/19 01:47 Est GFR (Non-Af Amer) 58 (> 60) L 06/15/19 14:24 BUN/Creatinine Ratio 35 (6-26) H 06/18/19 01:47 Glucose 236 mg/dL (70-105) H 06/18/19 01:47 POC Glucose 218 mg/dL (70-99) H 06/18/19 00:26 Calcium 8.3 mg/dL (8.6-10.3) L 06/18/19 01:47 Phosphorus 2.5 mg/dL (2.7-4.5) L 06/16/19 04:58 Troponin I 0.04 ng/mL (< 0.04) H* 06/15/19 23:18 B-Natriuretic Peptide 415 pg/mL (Less than 100) H 06/15/19 14:24 - Microbiology Findings Microbiology Findings: Microbiology, Last 48 Hours 06/16/19 14:58 Sputum Culture - Preliminary Sputum Gram Negative Ronal - Clinical Findings Intake & Output: Intake & Output 06/17/19 06/18/19 06/18/19 23:59 07:59 15:59 Intake Total 510 / 750 Output Total 0 / 600 150 / 150 Balance 510 / 150 -150 / -150 Weight 195 kg - VTE Reasons for not Prescribing Prophylaxis: Not indicated-Anticoagulated or INR therapeutic
[2019-06-18] MEDS ORDERED: predniSONE 20 MG TABLET PO SCH (09:00)
[2019-06-18] MEDS: Insulin LISPRO 300 UNITS/3 ML VIAL SQ SCH ×2 (09:26→12:09)
[2019-06-18] MEDS: Potassium Chloride Elixir 20 MEQ/15 ML UDC PO SCH ×2 (09:34→12:09)
[2019-06-18] MEDS: clonazePAM 0.5 MG TABLET PO SCH (09:34)
[2019-06-18] MEDS: levoFLOXacin 750 MG/150 ML 750 MG/150 ML BAG IVPB SCH (09:35)
--- NOTE | 2019-06-18 10:20 | Discharge Summary ---
- NOTES TO OUTPATIENT PROVIDER Notes to Outpatient Provider: Follow-up with pulmonology for bronchoscopy in 2-[address] in 4-6 weeks. Orders not resulted at time of discharge: Pending orders 06/16/19 14:58 Sputum Culture [Culture,Sputum with Gram Stain] [] Routine Date of Encounter: 06/18/19 Time of Encounter: 07:15 - Discharge Diagnosis (1) Pneumonia Priority: Secondary Status: Acute Qualifiers: Pneumonia type: due to unspecified organism Laterality: right Lung location: unspecified part of lung Qualified Code(s): J18.9 - Pneumonia, unspecified organism (2) Supratherapeutic INR Priority: Secondary Status: Acute (3) Hemoptysis Priority: Secondary Status: Acute (4) Acute respiratory failure with hypoxia Priority: Primary Status: Acute (5) Elevated troponin I level Priority: Secondary Status: Acute (6) Atrial fibrillation with RVR Priority: Secondary Status: Acute Hospital course: Mr. Navarrete is a 73 year old male with history of atrial fibrillation on Coumadin, COPD, PAD, who was admitted for acute hypoxic respiratory failure secondary to pneumonia, complicated by hemoptysis in the setting of supratherapeutic INR and COPD exacerbation. Also had minimally elevated troponin with afib with RVR that was triggered by respiratory failure. Echocardiogram s howed preserved EF and normal wall motion. INR reversed with Vit K and Kcentra to 2.9 with resolution of hemoptysis. Also treated with IV levaquin with downtrending WBC as well as O2 requirement. 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 Sputum culture came back stenotrophomonas sensitive to Levaquin and he will be discharged on a total of 10 days of Levaquin, steroid taper, and lower dose of Coumadin. He will need to follow up on his INR with his device daily and report to PCP for further adjustement. HE will also need to follow up with Pulmonology for bronchoscopy. He will also need to follow-up with repeat CT chest in 4-6 weeks for incidental 9mm pulmonary nodule in R LL. He was discharged on 2-3L of O2 via [place]. Discharge discussed with: patient, family, nurse - Time Spent with Patient Total time spent providing and/or coordinating discharge services: 32 mins - Discharge Medications Prescriptions: New Warfarin [Coumadin] 2 mg PO 1800 #30 tablet levoFLOXacin [Levaquin] 750 mg PO DAILY #6 tablet predniSONE [PredniSONE] 40 mg PO DAILY #5 tablet Continued Citalopram [CeleXA] 20 mg PO DAILY Omeprazole [PriLOSEC] 20 mg PO DAILY Gemfibrozil [Lopid] 600 mg PO BID clonazePAM [Clonazepam] 0.5 mg PO BID Allopurinol [Zyloprim 300 MG] 300 mg PO DAILY Fenofibrate [Tricor] 54 mg PO DAILY Cyclobenzaprine [Flexeril] 10 mg PO HS PRN PRN Reason: Muscle Spasm Diltiazem CD (24hr) [Cardizem CD] 120 mg PO DAILY Fluticasone/Salmeterol [Advair 250-50 Diskus] 1 puff PO BID Metformin HCl 500 mg PO BID Multivit-Min/FA/Lycopen/Lutein [Adults 50+ Multivitamin Tablet] 1 tab PO DAILY Niacin 500 mg PO DAILY Vits A,C,E/Lutein/Minerals [Healthy Eyes Tablet] 1 tab PO DAILY Discontinued Amoxicillin/Clavulanate [Augmentin] 1 tab PO BID predniSONE [PredniSONE] See Taper PO AD Warfarin [Coumadin] 4 mg PO Q48H Warfarin [Coumadin] 3.5 mg PO Q48H Home Medications: Allopurinol [Zyloprim 300 MG] 300 mg PO DAILY 06/16/19 [History] Citalopram [CeleXA] 20 mg PO DAILY 06/16/19 [History] Gemfibrozil [Lopid] 600 mg PO BID 06/16/19 [History] Omeprazole [PriLOSEC] 20 mg PO DAILY 06/16/19 [History] clonazePAM [Clonazepam] 0.5 mg PO BID 06/16/19 [History] Cyclobenzaprine [Flexeril] 10 mg PO HS PRN 06/17/19 [History] Diltiazem CD (24hr) [Cardizem CD] 120 mg PO DAILY 06/17/19 [History] Fenofibrate [Tricor] 54 mg PO DAILY 06/17/19 [History] Fluticasone/Salmeterol [Advair 250-50 Diskus] 1 puff PO BID 06/17/19 [History] Metformin HCl 500 mg PO BID 06/17/19 [History] Multivit-Min/FA/Lycopen/Lutein [Adults 50+ Multivitamin Tablet] 1 tab PO DAILY 06/17/19 [History] Niacin 500 mg PO DAILY 06/17/19 [History] Vits A,C,E/Lutein/Minerals [Healthy Eyes Tablet] 1 tab PO DAILY 06/17/19 [History] Warfarin [Coumadin] 2 mg PO 1800 #30 tablet 06/18/19 [Rx] levoFLOXacin [Levaquin] 750 mg PO DAILY #6 tablet 06/18/19 [Rx] predniSONE [PredniSONE] 40 mg PO DAILY #5 tablet 06/18/19 [Rx] Allergies/Adverse Reactions: Allergy/AdvReac Type Severity Reaction Status Date / Time hydrocodone [From Vicodin] Allergy Itching Verified 06/15/19 15:16 oxycodone [From Percocet] Allergy Itching Verified 06/15/19 15:17 Date of admission: 06/15/19 19:21 Primary care physician: PCP NONE Consults: 06/15/19 18:28 Consult to Pulmonology [CONS] Routine Consulting Provider: [facility] Reason for Consult: hemoptysis, supratherapeutic INR Call Completed: Yes 06/17/19 09:01 Consult to Nurse Navigator [CONS] Routine Comment: on, copd - Constitutional Vitals: Temp Pulse Resp BP Pulse Ox 97.7 F 78 18 118/70 92 06/18/19 07:56 06/18/19 07:56 06/18/19 07:56 06/18/19 07:56 06/18/19 07:56 Exam: General: Alert and oriented, not in acute distress. Cardiovascular:Normal S1 & S2, No JVD. Pulse irregular but normal rate Lungs: scattered wheezes bilaterally Abdomen:Soft, non-tender, no rigidity. Extremities:No deformity or swelling Neurological:Normal cognition and motor skills. Non-focal - Patient Status Disposition: Home, Self-Care Condition: Fair Functional capacity at discharge: independent ambulation Overall status at discharge: patient is progressing back to baseline - Discharge Instructions Instructions: Acute Respiratory Distress Syndrome (DC), Atrial Fibrillation (DC), Chronic Obstructive Pulmonary Disease (DC), Pneumonia (DC), Sepsis (DC) Follow Up With: NONE,PCP [Primary Care Provider] - - Diet and Activity Activity: increase activity as tolerated, resume usual activities as tolerated Diet: regular diet - VTE Reasons for not Prescribing Prophylaxis: Not indicated-Anticoagulated or INR therapeutic
[2019-06-18] MEDS: Budesonide/Formoterol 160/4.5 1 PUFF INH IH SCH (10:28)
[2019-06-19] MEDS ORDERED: levoFLOXacin 750 MG TABLET PO SCH (09:00)
== END 2019-06-18 13:21 | disposition home or self-care (01) | DRG 189 ==
LOC: EMEROOARM 14:06 → SUATTDRO 19:21 → ICNU 19:21 → 2ANU 06-16 09:49
PROVIDERS: ADMIT Internal Medicine Nephrology; ATTEND Internal Medicine